=== PATIENT | male | born 1955 ===

== ENCOUNTER → 2021-12-19 | Day surgery (SDC) | payer MEDICARE, OTHER ==
[~2021-12-19] MED LIST: Acetaminophen 325 MG Tab PO SCH; HYDROmorphone 0.5 MG/0.5 ML Syringe IVPUSH PRN; Lactated Ringers 1,000 ML IV SCH; Lidocaine 1% 5 ML VIAL ONE; Lidocaine 1%/Sod Bicarbonate in NS 8.4% 1 ML Syringe IDERM PRN; Midazolam 1 MG/ML 2 ML SDV ONE; Morphine 8 MG, EPINEPHrine 0.3 MG, Cefuroxime 750 MG, Ketorolac 30 MG, Sodium Chloride ... PRN; Ondansetron 4 MG/2 ML SDV IVPUSH PRN; Pregabalin 25 MG Cap PO SCH; Propofol 200 MG/20 ML SDV ONE; Sodium Chloride 0.9% 10 ML Syringe FLUSH PRN; Sodium Chloride 0.9% 10 ML Syringe FLUSH SCH; Vancomycin 1 GM SDV ONE; ceFAZolin 1 GM Vial ONE; fentaNYL 100 MCG/2 ML SDV IVPUSH PRN; oxyCODONE ER 10 MG TAB.ER PO SCH
== END | disposition home or self-care (01) ==
LOC: JD.SDS 07:01
PROVIDERS: ATTEND Orthopaedic Surgery
DX: M25.552 Pain in left hip (principal); Z53.09 Procedure and treatment not carried out because of other contraindication; J44.9 Chronic obstructive pulmonary disease, unspecified; I10 Essential (primary) hypertension; F17.210 Nicotine dependence, cigarettes, uncomplicated; Z79.899 Other long term (current) drug therapy; Z98.890 Other specified postprocedural states
CPT/HCPCS: 36415; 86850; 86900; 86901; A9270; J7120; J0690; J2250; J2704; J3370

== ENCOUNTER 2021-12-22 08:55 | Day surgery (SDC) | payer MEDICARE, OTHER ==
[~2021-12-22 08:55] MED LIST changes: +Acetaminophen 325 MG Tab PO ONE; -Acetaminophen 325 MG Tab PO SCH; +Pregabalin 25 MG Cap PO ONE; -Pregabalin 25 MG Cap PO SCH; -Vancomycin 1 GM SDV ONE; +fentaNYL 100 MCG/2 ML SDV ONE; +oxyCODONE ER 10 MG TAB.ER PO ONE; -oxyCODONE ER 10 MG TAB.ER PO SCH
[2021-12-22] MEDS ORDERED: Vancomycin 1 GM SDV ONE (09:24)
[2021-12-22] MEDS ORDERED: Phenylephrine 1% 10 MG/ML SDV ONE (10:36)
[2021-12-22] MEDS ORDERED: Sodium Chloride 0.9% 100 ML ONE (11:48)
[2021-12-22] MEDS ORDERED: Cyclobenzaprine 10 MG Tab PO ONE (15:18)
[2021-12-22] MEDS ORDERED: oxyCODONE 5 MG Tab PO ONE (15:18)
== END 2021-12-22 16:24 | disposition home or self-care (01) ==
LOC: JD.SDS 08:55
PROVIDERS: ATTEND Orthopaedic Surgery
DX: M16.12 Unilateral primary osteoarthritis, left hip (principal); J44.9 Chronic obstructive pulmonary disease, unspecified; I10 Essential (primary) hypertension; F17.210 Nicotine dependence, cigarettes, uncomplicated; E78.00 Pure hypercholesterolemia, unspecified; H54.7 Unspecified visual loss; Z79.899 Other long term (current) drug therapy
CPT/HCPCS: 0055T; 27130; 73501; 97110; 97116; 97161; A9270; C1713; C1776; J0171; J0690; J0697; J1885; J2250; J2270; J2370; J2704; J3010; J3370; J7120; 01214